=== PATIENT | male | born 1970 | race Hispanic/Latino ===

== ENCOUNTER → 2019-02-18 | Outpatient (CLI) | payer OTHER, SELFPAY ==
--- NOTE | 2019-02-18 16:59 | RAD_ITS ---
STUDY: X-RAY - LUMBAR SPINE REASON FOR EXAM: Male, 48 years old. Facet arthropathy TECHNIQUE: 5 view(s) of the lumbar spine were obtained. COMPARISON: None FINDINGS: Normal lumbar lordosis. There is no substantial scoliosis. There is a normal alignment of the vertebrae. Normal vertebral bodies. Minimal spurring at the endplates. Normal disc space heights. The soft tissue structures are unremarkable. RAD/L/S Spine Min 4 Views IMPRESSION: No acute pathology of the lumbar spine. No significant facet hypertrophy. Electronically Signed: Aditya Cooper DO at 22:18 EST Tel [phone], Service support ,
--- NOTE | 2019-02-18 16:59 | RAD_ITS ---
STUDY: X-RAY - SACROILIAC JOINTS REASON FOR EXAM: Male, 48 years old. Facet arthropathy TECHNIQUE: 3 view(s) of the sacroiliac joints were obtained. COMPARISON: None. FINDINGS: Normal bilateral sacroiliac joints. Normal visualized sacral ala and sacrum. Normal visualized iliac bones. Normal visualized soft tissue structures. RAD/S-I Jts 3 or More Views IMPRESSION: Normal x-ray examination of the bilateral sacroiliac joints. Electronically Signed: Aditya Cooper DO at 22:18 EST Tel [phone], Service support ,
== END | disposition home or self-care (01) ==
LOC: MTRAD 16:57
PROVIDERS: Family Provider Family Medicine; PCP Family Medicine; Referring Provider Family Medicine; Visit Provider Family Medicine
DX: M47.819 Spondylosis without myelopathy or radiculopathy, site unspecified (principal)
CPT/HCPCS: 72110; 72202

== ENCOUNTER 2019-05-27 18:30 | Outpatient (RCR) | payer OTHER, SELFPAY ==
--- NOTE | 2019-06-04 09:09 | HP.PTEVAL_ITS ---
Patient's Visit Information REGGIE ECKERT is a 48 year old M referred to Physical Therapy by Jayce Dunbar MD with a diagnosis of LBP. Date of Evaluation: 04/15/19 Physical Therapist: Gabe Jauregui DPT - Visit Plan Frequency: 2x /Week Duration: 4-6 Weeks Plan: Pt. to continue with POC, progress with core stability and pelvic ROM/stretching. - Subjective Findings: Pt. is here today for his initial evaluation with diagnosis of LBP with out radiculopathy. Pt. reports pain is mostly at L side of LB near SI region. Pt. reports greatest pain with bending fwrd especially after prolonged sitting. 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 Pt. has tried some gentle stretching and heat without relief. Pt. reports symptos have been slowly getting worse for a few months now. pt. reports no N/T, no LE weakness, no radiating pain and no loss of B/B. Pt. reports no mech of injury. Pt. has decreased pain with walking, increased pain with sitting. No effect on sleeping. No xrays. Pt. is hopeful to reduce symptoms in order to get back to all recreational actrivities without limitations. - Pain Lumbar spine Pain Intensity (Out of 10): 0 Pain Intensity Range: 0, 6 Comment: 0.5/10 - Objective POSTURE: Pt. has decent posture in stnace. Slightly elevated L ilium. Slight anterior rotated L ilium. No lateral shift. PALPATION: Pt. has tenderness at L4/L5 with PA hypomobility noted. Tender at L lumbar erector spinea and L side of multiidus. Pt. has soreness at L psoas as well. NEURO: normal throughout. ROM: Lumbar spine- normal ROM, except min loss with ext- decrease NB, flexion- min loss increase NW. Flexion improving with REIL. Pt. has tight B hamstrings and T bilat hip flexors. MMT: BLEs 5/5 throughout; core strength- fair- with trunk flexion, rest 5/5. GAIT: Pt. tends to ambulate in anterior pelvic tilt with decresed B hip extension, more on toes, limited heel strke. STAIRS: normal. - Goals Goal 1:: LTG: Pt. to be I with HEP. Goal Time Frame: 4-6 Weeks Goal 2:: STG: Pt. to have full lumbar ROM withtout increase in symptoms. Goal Time Frame: 2-4 Weeks Goal 3:: STG: pt. to have good pelvic positioning in sitting and standing. Goal Time Frame: 2-4 Weeks Goal 4:: LTG: Pt. to complete all work activities without increase in symptoms. 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 Goal Time Frame: 4-6 Weeks Goal 6:: LTG: Pt. to have increased core strength by 1/2 grade. Goal Time Frame: 4-6 Weeks - Rehabilitation Potential Physical Therapy Diagnosis: Pt. has signs and symptoms consistent with LBP most likely from anterior pelvic positioning, tight hip flexors, weakened core strenght, and job that causes prolonged sitting. Pt. would benefit from PT to increase proper pelvic positioning, hip flexor stretching, REIL and progressing to core strengthening. Rehabilitation Potential: Excellent - Anticipated Interventions Patient/Client Instruction: Educate patient on: Condition, Plan of Care, Risk Factors, Benefits of Fitness Program For the Purpose of:: To improve decision making, To facilitate caregiver knowledge, To improve self management, To prevent re-injury, To improve ability to perform tasks related to life management, To improve tolerance to ADL's Therapeutic Exercise to Include: Strength training, Power training, Endurance training, Body mechanics, Postural training, Flexibilty training, Gait and locomotor training, Passive ROM, Active ROM, Dynamic Lumbar Stabilization, Mina Exercises For the Purpose of:: To decrease pain, To decrease swelling/inflammation, To increase ROM, To improve nutrient delivery to tissue, To increase oxygenation perfusion, To improve health of tissue, To decrease soft tissue restriction, To increase flexibility/ROM Manual Therapy Techniques to Include: Mobilization, Manipulation, Passive ROM, Soft tissue mobilization For the Purpose of:: To decrease pain, To decrease swelling/inflammation, To increase ROM, To improve nutrient delivery to tissue Thank you for the opportunity to evaluate your patient. For Medicare and Medicare HMO plans, please review the plan of care and approve it. It will need to be FAXED BACK to us at [phone] for Medicare purposes. For Medicare only, by signing this I certify the plan of care. Please let me know if there are questions or concerns regarding this plan of care. Physician Signature: Date:
--- NOTE | 2019-10-06 10:54 | HP.PT.NRP ---
REGGIE PRUITT ECKERT was seen in my office for initial evaluation on 04/15/19. The following Plan of Care was established for this patient: Initial Frequency: 2x /Week Initial Duration: 4-6 Weeks Patient/Client Instruction: Educate patient on: Condition, Plan of Care, Risk Factors, Benefits of Fitness Program For the Purpose of:: To improve decision making, To facilitate caregiver knowledge, To improve self management, To prevent re-injury, To improve ability to perform tasks related to life management, To improve tolerance to ADL's Therapeutic Exercise to Include: Strength training, Power training, Endurance training, Body mechanics, Postural training, Flexibilty training, Gait and locomotor training, Passive ROM, Active ROM, Dynamic Lumbar Stabilization, Mina Exercises For the Purpose of:: To decrease pain, To decrease swelling/inflammation, To increase ROM, To improve nutrient delivery to tissue, To increase oxygenation perfusion, To improve health of tissue, To decrease soft tissue restriction, To increase flexibility/ROM Manual Therapy Techniques to Include: Mobilization, Manipulation, Passive ROM, Soft tissue mobilization For the Purpose of:: To decrease pain, To decrease swelling/inflammation, To increase ROM, To improve nutrient delivery to tissue This patient was last seen in our office 05/27/19. Pertinent comments regarding their Physical therapy will appear below: Pt. was seen for her LBP. pt. was progressing well. Pt. has not been seen in several months and will be DC from PT at this point in time. At this point I will be discontinuing this patient from physical therapy. I would be happy to see this patient again in the future if found appropriate by the physician. Thank you! Gabe Jauregui DPT
== END 2019-05-27 19:00 | disposition home or self-care (01) ==
LOC: PT 18:30
PROVIDERS: Family Provider Family Medicine; PCP Family Medicine; Visit Provider Family Medicine
DX: M12.80 Other specific arthropathies, not elsewhere classified, unspecified site (principal)
CPT/HCPCS: 97110; 97161

== ENCOUNTER → 2019-10-29 | Outpatient (CLI) | payer OTHER, SELFPAY ==
[2019-10-29 17:30] LABS: Hematocrit 40.7 % (40-54); Hemoglobin 13.4 g/dL (13.0-16.5); Mean Corp Hgb Conc 32.9 g/dL (32-36); Mean Corpuscular Hgb 30.4 pg (27.0-32.0); Mean Corpuscular Volume 92.3 fL (80-94); Mean Platelet Vol. 10.7 fl (6.2-12.0); Platelet Count 317 K/mm3 (150-450); RBC Distribution Width CV 12.4 % (11.6-14.6); RBC Distribution Width SD 41.7 fl (35.1-43.9); Red Blood Count 4.41 M/mm3 (4.6-6.2); White Blood Count 7.4 K/mm3 (4.4-11.0)
[2019-10-29 17:38] LABS: Erythrocyte Sedimentation Rate 15 mm/hr (0-15)
[2019-10-29 17:57] LABS: AST(SGOT) 25 U/L (15-37); Alanine Aminotransfer ALT/SGPT 52 U/L (16-61); Albumin, Serum 4.1 g/dL (3.2-5.0); Alkaline Phosphatase 65 U/L (45-117); Anion Gap 5 (5-15); BUN 24 mg/dL (7-18); BUN/Creat Ratio 16.9 RATIO (10-20); Calcium,Total 8.8 mg/dL (8.5-10.1); Chloride 106 mmol/L (98-107); Creatinine, Serum 1.42 mg/dL (0.70-1.30); EST Glomerular Filtration Rate 56 mL/min (>60); Est Glom Filt Rate - Afr Amer 68 mL/min (>60); Glucose 91 mg/dL (74-106); Iron 70 ug/dL (65-175); Magnesium 2.2 mg/dL (1.6-2.6); Potassium 3.7 mmol/L (3.5-5.1); Protein, Total 8.1 g/dL (6.4-8.2); Sodium Level 139 mmol/L (136-145); Thyroid Stim Hormone (TSH) 2.68 uIU/mL (0.358-3.74)
== END | disposition home or self-care (01) ==
LOC: MTLAB 15:30
PROVIDERS: PCP Family Medicine; Referring Provider Family Medicine; Visit Provider Family Medicine
DX: R42 Dizziness and giddiness (principal)
CPT/HCPCS: 36415; 80053; 83540; 83735; 84403; 84443; 85027; 85652

== ENCOUNTER 2021-03-15 18:00 | Outpatient (RCR) | payer OTHER, SELFPAY ==
[2020-01-23 09:27] VITALS: BMI 28.9
--- NOTE | 2020-11-10 12:15 | HP.PTEVAL_ITS ---
Patient's Visit Information REGGIE ECKERT is a 50 year old M referred to Physical Therapy by Dr. Scott Deleon MD with a diagnosis of lumbago, tight hip flexor. Date of Evaluation: 10/26/20 Physical Therapist: Gabe Jauregui DPT - Visit Plan Frequency: 2x /Week Duration: 4-6 Weeks Plan: Start with lumbar extension, fix his lateral shift. Hip flexor stretching. Progress to core stability and lumbar extensor strengthening. - Subjective Pt. is here today for his initial evaluation with diagnosis of low back pain, tight hip flexor. Pt. reports having increased central to L sided low back pain for a few weeks now. He reports no pain radiating down his leg, but is isolated into L lumbar spine and gluteal region. Pt. reports increased pain with sustained sitting, bending over, lifting and getting up after sustained sitting. Decreases pain: he has been doing some REIL which has helped. Pt. denies N/T down either LE. No changes in B/B. 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 Pt. is mostly sitting and unloading his truck. Pt. reports this episode he was playing soccer and running and felt a strain in his back. Pt. has improved with his exercises at home into extension, but is still having some issues. Pt. is hopeful to get back to all reacrational and work activities without limitations. - Pain Lumbar spine Pain Intensity (Out of 10): 4 Pain Intensity Range: 2, 6 L gluteal region Pain Intensity (Out of 10): 2 Pain Intensity Range: 1, 7 - Objective POSTURE: Pt. has a L lateral trunk shift with pain during attempts to correct. Pt. has slight flexed posture as well. PALPATION: Pt. has tenderness at L side of lumbar erector spinae. Pt. has hypomobility at L4-S1 with increased soreness with PAs here as well. NEURO: pt. has normal sensation of BLEs,normal DTR of BLEs. ROM: Lumbar spine: flexion min loss increase NW, extension min loss (stiff), SB increase NW to R side with min loss, rotation nil loss NE bilat. Pt. has full hip ROM bilaterally without increase in symptoms. He does have tight hip flexors bilaterally. With stretching his symptoms did improve. MMT: Pt. has full strength in BLEs, core strength fair, lumbar extensors fair. GAIT: pt. ambulates with L lateral shift. Pt. has slight pain with walking. Decreased arm swing noted. - Special Tests L/S Slump test left side: Negative L/S Slump test right side: Negative L/S Left Straight Leg Raise: Negative L/S Right Straight Leg Raise: Negative Lumbar Standing: Flexion - Mechanical Response: No effect Lumbar Standing: Flexion - Symptoms During Testing: Increases Lumbar Standing: Flexion - Symptoms After Testing: No worse Lumbar Standing: Extension - Mechanical Response: No effect Lumbar Standing: Extension - Symptoms During Testing: Decreases Lumbar Standing: Extension - Symptoms After Testing: Better Lumbar Standing: Right Side Glides - Mechanical Response: No effect Lumbar Standing: Right Side Stewardson - Symptoms During Testing: Increases Lumbar Standing: Right Side Stewardson - Symptoms After Testing: No worse Lumbar Standing: Left Side Stewardson - Mechanical Response: No effect Lumbar Standing: Left Side Stewardson - Symptoms During Testing: No effect Lumbar Standing: Left Side Stewardson - Symptoms After Testing: No effect Lumbar Lying: Flexion - Mechanical Response: No effect Lumbar Lying: Flexion - Symptoms During Testing: No effect Lumbar Lying: Flexion - Symptoms After Testing: No effect Lumbar Lying: Extension - Mechanical Response: Increases motion Lumbar Lying: Extension - Symptoms During Testing: Decreases Lumbar Lying: Extension - Symptoms After Testing: Better - Balance/Special Test Scores Oswestry Low Back Score: 11 - Goals Goal 1:: LTG: Pt. to be I with HEP. Goal Time Frame: 4-6 Weeks Goal 2:: STG: Pt. to have increased lumbar flexion and extension by 25% in both directions without increase in symptoms. Goal Time Frame: 2-4 Weeks Goal 3:: LTG: Pt. 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 Goal Time Frame: 4-6 Weeks Goal 4:: STG: pt. to be able to stand and walk without visible lateral shift. Goal Time Frame: 2-4 Weeks Goal 5:: LTG: Pt. to have increased core and lumbar extensor strength to 5/5 throughout. Goal Time Frame: 4-6 Weeks - Rehabilitation Potential Physical Therapy Diagnosis: Pt. has signs and symptoms of low back pain with tight hip flexors. Pt. has overall reduced lumbar extension with pain with flexion. He had tight hip flexors bilaterally and has a occupation that causes him to sit for long periods of time. Pt. would benefit from PT to work on lumbar ROM into extension, hip flexor stretching progressing to core stability and extensor strengthening. Rehabilitation Potential: Excellent - Anticipated Interventions Patient/Client Instruction: Educate patient on: Condition, Plan of Care, Risk Factors, Benefits of Fitness Program For the Purpose of:: To facilitate caregiver knowledge, To improve self management, To prevent re-injury, To improve ability to perform tasks related to life management, To improve tolerance to ADL's Therapeutic Exercise to Include: Strength training, Power training, Endurance training, Flexibilty training, Gait and locomotor training, Passive ROM, Active ROM, Dynamic Lumbar Stabilization, Mina Exercises For the Purpose of:: To decrease pain, To increase ROM, To improve nutrient delivery to tissue, To increase oxygenation perfusion, To improve muscle performance and motor function, To improve ability to perform ADL's, To improve gait and locomotor functions, To improve health of tissue, To decrease soft tissue restriction, To increase flexibility/ROM Thank you for the opportunity to evaluate your patient. For Medicare and Medicare HMO plans, please review the plan of care and approve it. It will need to be FAXED BACK to us at [phone] for Medicare purposes. For Medicare only, by signing this I certify the plan of care. Please let me know if there are questions or concerns regarding this plan of care. Physician Signature: Date:
--- NOTE | 2021-02-08 16:46 | HP.PTREVAL ---
Dr. Scott Deleon MD, It has been my pleasure to treat REGGIE ECKERT over the last 10 visits for lumbago, tight hip flexor. Please see the progress note below for an update on the physical therapy plan of care! Subjective: Pt. missed last visit due to working late. He reports overall doing much better. He reports being HEP compliant without issues. Objective/Function: Pt. reports overall doing much better. He wants to work on exercises at home and progress exercises well. Plan Plan: Pt. to complete exercises at home independently at this point in time. Pt. to trial exercises independently. Balance/Gait/Functional tests - Balance/Special Test Scores Oswestry Low Back Score: 11 Goals Goal 1:: LTG: Pt. to be I with HEP. Goal Time Frame: 4-6 Weeks Goal Progress: Goal Met Goal 2:: STG: Pt. to have increased lumbar flexion and extension by 25% in both directions without increase in symptoms. Goal Time Frame: 2-4 Weeks Goal Progress: Goal Met Goal 3:: LTG: Pt. 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 Goal Time Frame: 4-6 Weeks Goal Progress: Progressing Goal 4:: STG: pt. to be able to stand and walk without visible lateral shift. Goal Time Frame: 2-4 Weeks Goal Progress: Goal Met Goal 5:: LTG: Pt. to have increased core and lumbar extensor strength to 5/5 throughout. Goal Time Frame: 4-6 Weeks Goal Progress: Progressing Anticipated Interventions Patient/Client Instruction: Educate patient on: Condition, Plan of Care, Risk Factors, Benefits of Fitness Program For the Purpose of:: To facilitate caregiver knowledge, To improve self management, To prevent re-injury, To improve ability to perform tasks related to life management, To improve tolerance to ADL's Therapeutic Exercise to Include: Strength training, Power training, Endurance training, Flexibilty training, Gait and locomotor training, Passive ROM, Active ROM, Dynamic Lumbar Stabilization, Mina Exercises For the Purpose of:: To decrease pain, To increase ROM, To improve nutrient delivery to tissue, To increase oxygenation perfusion, To improve muscle performance and motor function, To improve ability to perform ADL's, To improve gait and locomotor functions, To improve health of tissue, To decrease soft tissue restriction, To increase flexibility/ROM Please do not hesitate to contact me at [phone] by phone or if you have questions or concerns regarding this new plan of care! Sincerely, JOSSUE RoyalT
== END 2021-03-15 19:00 | disposition home or self-care (01) ==
LOC: PT 18:00
PROVIDERS: PCP Family Medicine; Referring Provider Family Medicine; Visit Provider Family Medicine
DX: M54.50 Low back pain, unspecified (principal); M25.651 Stiffness of right hip, not elsewhere classified
CPT/HCPCS: 97110; 97140; 97161

== ENCOUNTER → 2022-09-12 | Outpatient (CLI) | payer OTHER, SELFPAY ==
[2022-09-12 19:46] LABS: Anion Gap 7 (5-15); BUN 23 mg/dL (7-18); BUN/Creat Ratio 17.7 RATIO (10-20); Calcium,Total 8.9 mg/dL (8.5-10.1); Chloride 111 mmol/L (98-107); Cholesterol 224 mg/dL (200); EST Glomerular Filtration Rate 62 mL/min (>60); Est Glom Filt Rate - Afr Amer 75 mL/min (>60); Glucose 88 mg/dL (74-106); High Density Lipoprotein 43 mg/dL; Potassium 3.8 mmol/L (3.5-5.1); Sodium Level 140 mmol/L (136-145); Triglycerides 176 mg/dL; Very Low Density Lipoprotein 35 mg/dL (5-40)
== END | disposition home or self-care (01) ==
LOC: MTLAB 15:58
PROVIDERS: PCP Family Medicine; Referring Provider Family Medicine; Visit Provider Family Medicine
DX: N52.9 Male erectile dysfunction, unspecified (principal); Z13.1 Encounter for screening for diabetes mellitus; Z13.220 Encounter for screening for lipoid disorders; Z12.5 Encounter for screening for malignant neoplasm of prostate
CPT/HCPCS: 36415; 80048; 80061; 84153; 84403; G0103